=== PATIENT | male | born 1980 | race Two or more races ===

== ENCOUNTER 2018-11-13 17:28 | Emergency (ER) | payer MEDICAID ==
[~2018-11-13] VITALS: Ht 170.2 cm; Wt 93.7 kg
[2018-11-13 18:15] VITALS: Ht 170.2 cm; Wt 93.7 kg
[2018-11-13 19:58] VITALS: BP 154/101
== END 2018-11-13 19:58 | disposition home or self-care (01) ==
LOC: ED 17:28
DX: T63.481A Toxic effect of venom of other arthropod, accidental (unintentional), initial encounter (principal); L53.0 Toxic erythema; J45.909 Unspecified asthma, uncomplicated; F17.210 Nicotine dependence, cigarettes, uncomplicated; E66.9 Obesity, unspecified; Z68.32 Body mass index [BMI] 32.0-32.9, adult; Y92.89 Other specified places as the place of occurrence of the external cause
CPT/HCPCS: 99406